=== PATIENT | male | born 2000 | race Caucasian/White ===

== ENCOUNTER 2023-03-19 08:22 | Emergency (ER) | payer OTHER ==
[~2023-03-19] VITALS: Ht 180.3 cm; Wt 77.3 kg
[2023-03-19 08:27] VITALS: BP 121/67; TEMP 98.9
[2023-03-19] MEDS ORDERED: PROZAC40 MG PO (09:11)
[2023-03-19 10:05] LABS: STREP A NEGATIVE
[2023-03-19 11:20] VITALS: PULSE 78
== END 2023-03-19 11:33 | disposition home or self-care (01) ==
LOC: COL.ER 08:22
PROVIDERS: Personal Emergency Response Attendant
DX: B34.9 Viral infection, unspecified (principal); R50.9 Fever, unspecified; R09.81 Nasal congestion; R51.9 Headache, unspecified